=== PATIENT | female | born 1980 | race Caucasian/White ===

== ENCOUNTER → 2016-08-10 | Outpatient (CLI) | payer OTHER ==
[~2016-08-10] MED LIST: FLAGYL500 MG PO; LEVAQUIN 5500 MG/TA1 PO; LEXAPRO 10MG10 MG PO; LEXAPRO 5MG5 MG PO; MELATONIN5 M2 PO; MIRENA52 MG IU; PREDNISONE20 MG PO; PRENATAL1 TA1 PO
== END ==
LOC: BHSO 10:47
DX: F90.0 Attention-deficit hyperactivity disorder, predominantly inattentive type (principal)
CPT/HCPCS: 90791-AI

== ENCOUNTER → 2016-09-09 | Outpatient (CLI) | payer OTHER | LOC: BHSO 14:18 | DX: F90.0 Attention-deficit hyperactivity disorder, predominantly inattentive type (principal) ==

== ENCOUNTER → 2016-10-04 | Outpatient (CLI) | payer OTHER | LOC: BHSO 14:44 | DX: F90.0 Attention-deficit hyperactivity disorder, predominantly inattentive type (principal) ==

== ENCOUNTER → 2016-10-28 | Outpatient (CLI) | payer OTHER | LOC: BHSO 14:21 | DX: F90.0 Attention-deficit hyperactivity disorder, predominantly inattentive type (principal) ==

== ENCOUNTER → 2016-11-22 | Outpatient (CLI) | payer OTHER | LOC: BHSO 14:54 | DX: F41.1 Generalized anxiety disorder (principal) ==

== ENCOUNTER → 2016-12-06 | Outpatient (CLI) | payer OTHER | LOC: BHSO 12:51 | DX: F41.1 Generalized anxiety disorder (principal) ==

== ENCOUNTER → 2016-12-23 | Outpatient (CLI) | payer OTHER | LOC: BHSO 08:02 | DX: F90.0 Attention-deficit hyperactivity disorder, predominantly inattentive type (principal) ==

== ENCOUNTER → 2017-01-09 | Outpatient (CLI) | payer OTHER | LOC: BHSO 16:09 | DX: F41.1 Generalized anxiety disorder (principal) ==

== ENCOUNTER → 2017-01-24 | Outpatient (CLI) | payer OTHER | LOC: BHSO 16:02 | DX: F41.1 Generalized anxiety disorder (principal) ==

== ENCOUNTER → 2017-01-31 | Outpatient (CLI) | payer OTHER | LOC: BHSO 16:03 | DX: F41.1 Generalized anxiety disorder (principal) ==

== ENCOUNTER → 2017-03-02 | Outpatient (CLI) | payer BC | LOC: BHSO 16:07 | DX: F41.1 Generalized anxiety disorder (principal) ==

== ENCOUNTER → 2017-03-07 | Outpatient (CLI) | payer BC | LOC: BHSO 16:06 | DX: F41.1 Generalized anxiety disorder (principal) ==

== ENCOUNTER → 2017-03-23 | Outpatient (CLI) | payer BC | LOC: BHSO 08:03 | DX: F41.1 Generalized anxiety disorder (principal) ==

== ENCOUNTER → 2017-06-02 | Outpatient (CLI) | payer BC | LOC: BHSO 08:04 | DX: F90.0 Attention-deficit hyperactivity disorder, predominantly inattentive type (principal) | CPT/HCPCS: G0463 ==

== ENCOUNTER → 2017-08-25 | Outpatient (CLI) | payer BC ==
[~2017-08-25] MED LIST changes: +ADDERALL XR20 MG PO; +ADDERALL10 MG PO; +EFFEXOR-XR150 MG PO
== END ==
LOC: BHSO 08:28
DX: F90.0 Attention-deficit hyperactivity disorder, predominantly inattentive type (principal)
CPT/HCPCS: G0463

== ENCOUNTER → 2017-11-01 | Outpatient (CLI) | payer BC | LOC: BHSO 08:33 | DX: F90.0 Attention-deficit hyperactivity disorder, predominantly inattentive type (principal) | CPT/HCPCS: G0463 ==

== ENCOUNTER → 2017-11-02 | Outpatient (CLI) | payer BC | LOC: BHSO 15:00 | DX: F41.1 Generalized anxiety disorder (principal) ==

== ENCOUNTER → 2017-11-15 | Outpatient (CLI) | payer BC | LOC: BHSO 14:55 | DX: F41.1 Generalized anxiety disorder (principal) ==

== ENCOUNTER → 2017-11-27 | Outpatient (CLI) | payer BC | LOC: BHSO 14:47 | DX: F41.1 Generalized anxiety disorder (principal) ==

== ENCOUNTER → 2018-02-09 | Outpatient (CLI) | payer BC | LOC: BHSO 08:45 | DX: F90.0 Attention-deficit hyperactivity disorder, predominantly inattentive type (principal) | CPT/HCPCS: G0463 ==

== ENCOUNTER → 2018-06-15 | Outpatient (CLI) | payer BC, OTHER | LOC: BHSO 07:56 | DX: F90.0 Attention-deficit hyperactivity disorder, predominantly inattentive type (principal) ==

== ENCOUNTER → 2018-11-19 | Outpatient (CLI) | payer BC, OTHER | LOC: BHSO 08:10 | DX: F90.0 Attention-deficit hyperactivity disorder, predominantly inattentive type (principal) | CPT/HCPCS: G0463 ==

== ENCOUNTER → 2019-05-22 | Outpatient (CLI) | payer BC, OTHER | LOC: BHSO 08:05 | DX: F90.0 Attention-deficit hyperactivity disorder, predominantly inattentive type (principal) | CPT/HCPCS: G0463 ==

== ENCOUNTER → 2019-06-07 | Outpatient (CLI) | payer BC, OTHER | LOC: BHSO 08:51 | DX: F43.10 Post-traumatic stress disorder, unspecified (principal) ==

== ENCOUNTER → 2019-06-28 | Outpatient (CLI) | payer BC, OTHER | LOC: BHSO 08:09 | DX: F43.10 Post-traumatic stress disorder, unspecified (principal) ==

== ENCOUNTER → 2019-07-31 | Outpatient (CLI) | payer BC, OTHER | LOC: BHSO 16:00 | DX: F43.10 Post-traumatic stress disorder, unspecified (principal) ==

== ENCOUNTER → 2019-08-21 | Outpatient (CLI) | payer BC, OTHER | LOC: BHSO 15:02 | DX: F43.10 Post-traumatic stress disorder, unspecified (principal) ==

== ENCOUNTER → 2019-08-28 | Outpatient (CLI) | payer BC, OTHER | LOC: BHSO 15:52 | DX: F43.10 Post-traumatic stress disorder, unspecified (principal) ==

== ENCOUNTER → 2019-09-04 | Outpatient (CLI) | payer BC, OTHER | LOC: BHSO 15:54 | DX: F43.10 Post-traumatic stress disorder, unspecified (principal) ==

== ENCOUNTER → 2019-09-11 | Outpatient (CLI) | payer BC, OTHER | LOC: BHSO 10:53 | DX: F43.10 Post-traumatic stress disorder, unspecified (principal) ==

== ENCOUNTER → 2019-09-25 | Outpatient (CLI) | payer BC, OTHER | LOC: BHSO 14:54 | DX: F43.10 Post-traumatic stress disorder, unspecified (principal) ==

== ENCOUNTER → 2019-10-03 | Outpatient (CLI) | payer BC, OTHER | LOC: BHSO 15:00 | DX: F43.10 Post-traumatic stress disorder, unspecified (principal) ==

== ENCOUNTER → 2019-11-19 | Outpatient (CLI) | payer BC, OTHER | LOC: BHSO 09:55 | DX: F90.0 Attention-deficit hyperactivity disorder, predominantly inattentive type (principal) | CPT/HCPCS: G0463 ==